=== PATIENT | female | born 1960 | race Caucasian/White ===

== ENCOUNTER 2017-10-01 06:45 | Emergency (ER) | payer OTHER ==
[~2017-10-01] VITALS: Ht 162.6 cm; Wt 70.3 kg
[2017-10-01 06:50] VITALS: BP 157/96
== END 2017-10-01 07:09 | disposition home or self-care (01) ==
LOC: ER 06:46
DX: J20.9 Acute bronchitis, unspecified (principal); I10 Essential (primary) hypertension
CPT/HCPCS: A4606; Z7610

== ENCOUNTER 2021-03-22 19:15 | Emergency (ER) | payer OTHER ==
[~2021-03-22] VITALS: Ht 160 cm; Wt 63.5 kg
--- NOTE | 2021-03-22 19:50 | NUR ---
BIBSELF DUE TO WOUND ON RIGHT FOOR DUE TO CUTTING FROM [employer], PT IS AA/O X4 NO SIGN OF RESPIRATORY DISTRESS, PAIN ON FOOT 10, HOOKE TO MONITOR AND SPOX
[2021-03-22] MEDS ORDERED: TDAP [DIPH/PERTUSSIS/TET] 0.5 ML VIAL IM ONE ×2 (20:30→20:35)
[2021-03-22] MEDS ORDERED: CEPH500T PO (21:11)
[2021-03-22 21:37] VITALS: BP 145/88
--- NOTE | 2021-03-22 21:37 | NUR ---
Patient discharged to home in stable condition. Written and verbal after care instructions given. Patient verbalizes understanding of instruction. RX GIVEN
== END 2021-03-22 21:37 | disposition home or self-care (01) ==
LOC: ER 19:25
DX: S90.811A Abrasion, right foot, initial encounter (principal); S90.414A Abrasion, right lesser toe(s), initial encounter; I10 Essential (primary) hypertension; W26.8XXA Contact with other sharp object(s), not elsewhere classified, initial encounter; Y93.89 Activity, other specified; Y92.512 Supermarket, store or market as the place of occurrence of the external cause; Y99.8 Other external cause status
CPT/HCPCS: 73630-TC; 90715

== ENCOUNTER 2021-09-27 21:21 | Emergency (ER) | payer OTHER ==
[~2021-09-27] VITALS: Ht 160 cm; Wt 67.1 kg
[~2021-09-27 21:21] MED LIST: CEPH500T PO
--- NOTE | 2021-09-27 22:15 | NUR ---
BIBS. PRODUCTIVE COUGH, DIFFICULTY BREATHING & LOSS OF VOICE X 1 WEEK. PATIENT LIVES IN AN APARTMENT WITH SOME PEOPLE BUT CLAIMED NOBODY IS SICK. PLACED COMFORTABLY IN BED. VITALS CHECKED.
--- NOTE | 2021-09-27 23:09 | NUR ---
pt refused flu and covid swab
[2021-09-28] MEDS ORDERED: DOXYCYCLINE HYCLATE (100 MG) 100 MG TABLET PO ONE (00:30)
[2021-09-28] MEDS ORDERED: DOXY100C2 PO (00:31)
[2021-09-28] MEDS ORDERED: DOXYCYCLINE HYCLATE (100 MG) 100 MG TABLET ONE (00:35)
[2021-09-28 00:48] VITALS: BP 155/70
--- NOTE | 2021-09-28 00:48 | NUR ---
Patient discharged to home in stable condition. Written and verbal after care instructions given. Patient verbalizes understanding of instruction. RX GIVEN
== END 2021-09-28 00:48 | disposition home or self-care (01) ==
LOC: ER 21:24
DX: J20.9 Acute bronchitis, unspecified (principal); J04.0 Acute laryngitis; I10 Essential (primary) hypertension; Z60.2 Problems related to living alone; Z79.899 Other long term (current) drug therapy
CPT/HCPCS: 71045-TC

== ENCOUNTER 2022-04-29 06:56 | Emergency (ER) | payer OTHER ==
[~2022-04-29] VITALS: Ht 165.1 cm; Wt 70.3 kg
[~2022-04-29 06:56] MED LIST changes: +DOXY100C2 PO
--- NOTE | 2022-04-29 07:07 | NUR ---
BIBSELF C/O SORE THRAOT AND SAMANTHA EAR ACHE X 1 WEEK. TOLERATING R/A WITH NO RESP DISTRESS
[2022-04-29] MEDS ORDERED: KETOROLAC TROMETHAMINE 15 MG/ML VIAL ONE (07:23)
[2022-04-29] MEDS ORDERED: DEXAMETHASONE SOD PHOSPHATE 10 MG/ML VIAL ONE (07:23)
[2022-04-29] MEDS ORDERED: KETOROLAC TROMETHAMINE INJ 30 MG/ML VIAL IM ONE (07:30)
[2022-04-29] MEDS ORDERED: DEXAMETHASONE SOD PHOSPHATE 10 MG/ML VIAL IM ONE (07:30)
--- NOTE | 2022-04-29 07:39 | NUR ---
PT REFUSED TORADOL AND DECADRON MEDICATIONS WELL COVID PCR SWAB. DR PEÑA AWARE. PT A/O X4 AND UNDERSTANDS RISKS/BENEFITS.
--- NOTE | 2022-04-29 07:43 | NUR ---
RAPID STREP SWAB OBTAINED AND SENT TO LAB
[2022-04-29] MEDS ORDERED: AZIT1PAC9 PO (07:54)
[2022-04-29] MEDS ORDERED: IBUP-1955 PO (07:54)
[2022-04-29 08:02] VITALS: BP 137/74
--- NOTE | 2022-04-29 08:02 | NUR ---
Patient discharged to home in stable condition. Written and verbal after care instructions given. Patient verbalizes understanding of instruction.
== END 2022-04-29 08:03 | disposition home or self-care (01) ==
LOC: EDUNIT# 06:56 → ER 07:04
DX: J02.9 Acute pharyngitis, unspecified (principal); J06.9 Acute upper respiratory infection, unspecified; I10 Essential (primary) hypertension; Z60.2 Problems related to living alone; Z79.899 Other long term (current) drug therapy
CPT/HCPCS: 86403-TC; 87070-TC; J1100; J1885

== ENCOUNTER → 2022-07-14 | Emergency (ER) | payer OTHER ==
[~2022-07-14] VITALS: Ht 162.6 cm; Wt 73.5 kg
[~2022-07-14] MED LIST changes: +ACETAMINOPHEN ES 500 MG TABLET ONE; +ACETAMINOPHEN ES 500 MG TABLET PO ONE; +AZIT1PAC9 PO; +IBUP-1953 PO; +IBUP-1955 PO; +IBUPROFEN 600 MG TABLET ONE; +IBUPROFEN 600 MG TABLET PO ONE
--- NOTE | 2022-07-14 10:50 | NUR ---
cRECEIVED PT 62 YRS FEMALE WALKING IN s/p slip and fall yesterday c/o pain on RT WIMARIA T SIERRA NO DIFFORMITY
--- NOTE | 2022-07-14 11:00 | NUR ---
SEEN BY DR. HOUSE
--- NOTE | 2022-07-14 11:20 | NUR ---
XRAY DONE AT BED SIDE
--- NOTE | 2022-07-14 13:05 | NUR ---
AWAITING DIPOSITION OF PATIENT BY .
--- NOTE | 2022-07-14 14:04 | NUR ---
Patient discharged to home in stable condition. Written and verbal after care instructions given. Patient verbalizes understanding of instruction.
[2022-07-14 14:08] VITALS: BP 138/88
== END | disposition home or self-care (01) ==
LOC: ER 10:05
DX: S83.92XA Sprain of unspecified site of left knee, initial encounter (principal); S63.8X1A Sprain of other part of right wrist and hand, initial encounter; S70.01XA Contusion of right hip, initial encounter; I10 Essential (primary) hypertension; Z60.2 Problems related to living alone; Z79.899 Other long term (current) drug therapy; W01.0XXA Fall on same level from slipping, tripping and stumbling without subsequent striking against object, initial encounter; Y93.89 Activity, other specified; Y92.89 Other specified places as the place of occurrence of the external cause; Y99.8 Other external cause status
CPT/HCPCS: 99284; 29105; 73130; 73502; 73564; L3763

== ENCOUNTER 2024-05-08 10:35 | Emergency (ER) | payer OTHER ==
[~2024-05-08] VITALS: Ht 162.6 cm; Wt 68.5 kg
[~2024-05-08 10:35] MED LIST changes: -ACETAMINOPHEN ES 500 MG TABLET ONE; -ACETAMINOPHEN ES 500 MG TABLET PO ONE; -IBUPROFEN 600 MG TABLET ONE; -IBUPROFEN 600 MG TABLET PO ONE
[2024-05-08] MEDS ORDERED: BENZONATATE 100 MG CAPSULE PO ONE (11:08)
[2024-05-08] MEDS ORDERED: PSEUDOEPHEDRINE HCL 30 MG TABLET ONE (11:08)
[2024-05-08] MEDS: BENZONATATE 100 MG CAPSULE PO PRN (11:13)
[2024-05-08] MEDS: PSEUDOEPHEDRINE HCL 30 MG TABLET PO ONE (11:13)
[2024-05-08] MEDS ORDERED: ALBU18HF2 INH (12:11)
[2024-05-08] MEDS ORDERED: BENZ-13 PO (12:11)
[2024-05-08 12:27] VITALS: BP 141/76; TEMP 98.3; O2SAT 99
== END 2024-05-08 12:27 | disposition home or self-care (01) ==
LOC: ER 10:40
DX: R05.9 Cough, unspecified (principal); J34.89 Other specified disorders of nose and nasal sinuses; I10 Essential (primary) hypertension; E11.9 Type 2 diabetes mellitus without complications; Z79.899 Other long term (current) drug therapy
CPT/HCPCS: 71045-TC

== ENCOUNTER 2024-05-16 10:57 | Emergency (ER) | payer OTHER ==
[~2024-05-16] VITALS: Ht 162.6 cm; Wt 68.0 kg
[~2024-05-16 10:57] MED LIST changes: +ALBU18HF2 INH; +BENZ-13 PO
[2024-05-16 11:38] VITALS: BP 160/90; TEMP 98.2; O2SAT 99
[2024-05-16 13:47] LABS: BASOPHILS # (AUTO) 0.1 K/uL (0.0-0.2); BASOPHILS % (AUTO) 0.4 % (0.0-2.0); EOSINOPHILS # (AUTO) 0.1 K/uL (0.0-0.7); EOSINOPHILS % (AUTO) 0.4 % (0.0-6.0); HEMATOCRIT 41 % (33-45); HEMOGLOBIN 13.4 g/dL (11.5-14.8); LYMPHOCYTES # (AUTO) 2.6 K/uL (0.8-4.8); LYMPHOCYTES % (AUTO) 18.4 % (20.0-44.0); MEAN CORPUSCULAR HEMOGLOBIN 28 PG (26.0-33.0); MEAN CORPUSCULAR HGB CONC 33 g/dl (31.0-36.0); MEAN CORPUSCULAR VOLUME 86 fL (82-100); MONOCYTES # (AUTO) 0.8 K/uL (0.1-1.30); MONOCYTES % (AUTO) 5.5 % (2.0-12.0); NEUTROPHILS # (AUTO) 10.6 K/uL (1.8-8.9); NEUTROPHILS % (AUTO) 75.3 % (43.0-81.0); PLATELET COUNT (AUTO) 284 K/uL (150-450); RED BLOOD CELL COUNT(AUTO) 4.76 MIL/uL (4.0-5.2); RED CELL DISTRIBUTION WIDTH 13.7 % (11.5-15.0); WHITE BLOOD COUNT (AUTO) 14.2 K/uL (4.3-11.0)
[2024-05-16 13:55] LABS: CALCIUM, SERUM 9.3 mg/dL (8.5-10.1); CREATININE 0.7 mg/dL (0.6-1.3)
[2024-05-16] MEDS ORDERED: CT SWABBABLE VALVE TRANS SET 1 EA INFUS.SET MC ONE (14:43)
[2024-05-16] MEDS ORDERED: IOHEXOL-350 100 ML VIAL IV ONE (14:43)
[2024-05-16] MEDS ORDERED: IV NS 0.9% 250 ML IV ONE (14:44)
== END 2024-05-16 16:17 | disposition home or self-care (01) ==
LOC: ER 11:06
DX: J20.9 Acute bronchitis, unspecified (principal); R11.10 Vomiting, unspecified; R07.9 Chest pain, unspecified; R06.02 Shortness of breath; Z60.2 Problems related to living alone
CPT/HCPCS: 99285; 71275; 71045; 85025; 80048; 85378; 36415; J7050; Q9967

== ENCOUNTER 2024-10-07 15:17 | Emergency (ER) | payer OTHER ==
[~2024-10-07] VITALS: Ht 162.6 cm; Wt 68.0 kg
[2024-10-07 17:28] VITALS: BP 167/103; TEMP 98.3; O2SAT 100
[2024-10-07] MEDS ORDERED: IBUPROFEN 600 MG TABLET ONE (18:56)
[2024-10-07] MEDS: IBUPROFEN 600 MG TABLET PO ONE (19:01)
== END 2024-10-07 20:08 | disposition home or self-care (01) ==
LOC: ER 15:24
DX: M79.641 Pain in right hand (principal); Z91.048 Other nonmedicinal substance allergy status
CPT/HCPCS: 73130-TC